=== PATIENT | female | born 1965 | race Caucasian/White ===

== ENCOUNTER 2017-02-14 14:30 | Inpatient (IN) ==
[2017-02-14 17:21] LABS: Appearance,Urine HAZY; Bacteria,Urine MOD /hpf (0); Bilirubin,Urine NEG (NEG); Color,Urine YELLOW; Glucose,Urine (UA) NEGATIVE (NEG); Leukocyte Esterase,Urine 25 /uL (NEG); Mucus,Urine MOD /hpf (0); Nitrate,Urine POS (NEG); Protein,Urine NEG (NEG); Specific Gravity,Urine 1.018 (1.000-1.035); Urine Blood 0.2 mg/dL (<0.03); Urine RBC 16 /hpf (0-1); Urine Squamous Epithelial Cell 1 /hpf (0-4); Urine WBC 14 /hpf (0-4); Urobilinogen,Urine NEG (NEG)
[2017-02-14 17:34] LABS: Basophils # (Auto) 0.1 K/mcL (0.0-0.3); Basophils % (Auto) 0.4 % (0.0-2.0); Eosinophils # (Auto) 0.1 K/mcL (0.0-0.7); Eosinophils % (Auto) 0.8 % (0.0-7.0); Granulocytes % (Auto) 83.7 % (38.0-78.0); Lymphocytes # (Auto) 2.1 K/mcL (1.5-4.8); Lymphocytes % (Auto) 12.4 % (15.5-49.0); Mean Cell Volume 91.2 fL (80.0-100.0); Mean Corpuscular HGB Conc 33.5 g/dL (31.0-36.0); Mean Corpuscular Hemoglobin 30.6 pg (26.0-34.0); Monocytes # (Auto) 0.5 K/mcL (0.1-0.9); Monocytes % (Auto) 2.7 % (1.0-12.0); Platelet Count 476 K/mcL (140-440); Red Cell Distribution Width 15.2 % (11.5-14.5)
[2017-02-14 17:43] LABS: Blood Urea Nitrogen 10 mg/dl (6-20)
[2017-02-20] MEDS ORDERED: oxyCODONE 10 MG TAB.ER.12H PO SCH ×2 (05:00→11:00)
[2017-02-20] MEDS ORDERED: ACETAMINOPHEN 500 MG TABLET PO SCH ×2 (05:00→11:00)
[2017-02-20] MEDS ORDERED: ceFAZolin 1 GM VIAL IV SCH ×2 (05:00→11:00)
[2017-02-20] MEDS ORDERED: PREGABALIN 150 MG CAPSULE PO SCH ×2 (05:00→11:00)
[2017-02-20] MEDS ORDERED: KETOROLAC 30 MG, ROPIVACAINE HCL/PF 49.5 ML, EPINEPHrine 0.5 MG, 0.9 % SODIUM CHLORIDE ... IJ SCH (06:30)
[2017-02-20 10:56] LABS: Basophils # (Auto) 0.3 K/mcL (0.0-0.3); Basophils % (Auto) 1.9 % (0.0-2.0); Eosinophils # (Auto) 0.3 K/mcL (0.0-0.7); Granulocytes % (Auto) 71.2 % (38.0-78.0); Lymphocytes # (Auto) 2.8 K/mcL (1.5-4.8); Lymphocytes % (Auto) 19.6 % (15.5-49.0); Mean Cell Volume 90.3 fL (80.0-100.0); Mean Corpuscular HGB Conc 33.6 g/dL (31.0-36.0); Mean Corpuscular Hemoglobin 30.4 pg (26.0-34.0); Monocytes # (Auto) 0.8 K/mcL (0.1-0.9); Monocytes % (Auto) 5.3 % (1.0-12.0); Platelet Count 434 K/mcL (140-440); RBC 4.67 M/mcL (4.00-5.20); Red Cell Distribution Width 15.1 % (11.5-14.5)
[2017-02-20 11:13] LABS: Appearance,Urine CLEAR; Bilirubin,Urine NEG (NEG); Color,Urine P.YELL; Glucose,Urine (UA) NORM (NEG); Leukocyte Esterase,Urine NEG /uL (NEG); Nitrate,Urine NEG (NEG); Protein,Urine NEG (NEG); Specific Gravity,Urine 1.013 (1.000-1.035); Urine Blood 50 ery/mcL (<5); Urobilinogen,Urine NORM (NEG)
[2017-02-20 11:26] LABS: Bacteria,Urine 0 /hpf (0); Urine RBC < 1 /hpf (0-1); Urine Squamous Epithelial Cell 0 /hpf (0-4); Urine WBC 0 /hpf (0-4)
[2017-02-20] MEDS ORDERED: IPRATROPIUM/ALBUTEROL 3 ML AMPUL.NEB NEB ONE (12:32)
[2017-02-20] MEDS ORDERED: ONDANSETRON 4 MG/2 ML VIAL IV ONE (13:00)
[2017-02-20] MEDS ORDERED: KETAMINE 100 MG/ML ML IV ONE (13:00)
[2017-02-20] MEDS ORDERED: LIDOCAINE HCL/PF 100 MG/5 ML SYRINGE IV ONE (13:00)
[2017-02-20] MEDS ORDERED: ROPIVACAINE HCL/PF 20 ML VIAL IJ ONE (13:00)
[2017-02-20] MEDS ORDERED: PROPOFOL 200 MG/20 ML VIAL IV ONE (13:00)
[2017-02-20] MEDS ORDERED: MIDAZOLAM 5 MG/5 ML VIAL IV ONE (13:00)
[2017-02-20] MEDS ORDERED: fentaNYL 250 MCG/5 ML VIAL IV ONE (13:00)
[2017-02-20] MEDS ORDERED: DEXAMETHASONE 10 MG/ML VIAL IV ONE (13:00)
[2017-02-20] MEDS ORDERED: TRANEXAMIC ACID 1,000 MG/10 ML VIAL IV ONE ×2 (13:00→14:23)
[2017-02-20] MEDS ORDERED: METOPROLOL TARTRATE 5 MG/5 ML VIAL IV PRN (13:48)
[2017-02-20] MEDS ORDERED: BENZOCAINE/MENTHOL 1 LOZENGE PO PRN ×2 (13:48→14:23)
[2017-02-20] MEDS ORDERED: ACETAMINOPHEN 1,000 MG/100 ML BOTTLE IV ONE (13:48)
[2017-02-20] MEDS ORDERED: NALOXONE HCL 0.4 MG/ML VIAL IV PRN (13:48)
[2017-02-20] MEDS ORDERED: diphenhydrAMINE 50 MG/ML VIAL IV PRN (13:48)
[2017-02-20] MEDS ORDERED: ePHEDrine 50 MG/ML AMPUL IV PRN (13:48)
[2017-02-20] MEDS ORDERED: ONDANSETRON 4 MG/2 ML VIAL IV PRN ×2 (13:48→14:23)
[2017-02-20] MEDS ORDERED: FLUMAZENIL 0.1 MG/ML ML IV PRN (13:48)
[2017-02-20] MEDS ORDERED: METHOCARBAMOL 1,000 MG/10 ML VIAL IV PRN (13:48)
[2017-02-20] MEDS ORDERED: ATROPINE SULFATE 0.4 MG/ML VIAL IV PRN (13:48)
[2017-02-20] MEDS ORDERED: PROMETHAZINE 25 MG/ML VIAL IV PRN (13:48)
[2017-02-20] MEDS ORDERED: IPRATROPIUM/ALBUTEROL 3 ML AMPUL.NEB NEB PRN (13:48)
[2017-02-20] MEDS ORDERED: LACTATED RINGERS 1,000 ML IV SCH (14:00)
[2017-02-20] MEDS ORDERED: GENTAMICIN SULFATE 800 MG/20 ML VIAL IR ONE (14:03)
[2017-02-20] MEDS ORDERED: HYDROmorphone 2 MG/ML SYRINGE IV PRN (14:23)
[2017-02-20] MEDS ORDERED: ACETAMINOPHEN 325 MG TABLET PO PRN (14:23)
[2017-02-20] MEDS ORDERED: POLYETHYLENE GLYCOL 3350 17 GM PACKET PO PRN (14:23)
[2017-02-20] MEDS ORDERED: BISACODYL 10 MG SUPP.RECT PR PRN (14:23)
[2017-02-20] MEDS ORDERED: FLEETS ADULT ENEMA PR PRN (14:23)
[2017-02-20] MEDS ORDERED: TEMAZEPAM 15 MG CAPSULE PO PRN (14:23)
[2017-02-20] MEDS ORDERED: MAGNESIUM HYDROXIDE 30 ML ORAL.SUSP PO PRN (14:23)
--- NOTE | 2017-02-20 14:23 | Brief Operative Note ---
Date of procedure: 02/20/17 Pre-op diagnosis: Right knee djd severe Post-op diagnosis: same Procedure: right tka with robot Grafts/Implants: Yes Anesthesia: GETA Complications: none Complications Description: 02/20/17 14:22 none Surgeon: Reynold Boateng Tile Conduit Layer: Noah Mcallister Estimated blood loss (cc): 20 Tourniquet Time (Minutes): 43 Specimens Removed/Pathology: none sent Condition: stable Disposition: PACU
[2017-02-20] MEDS: KETOROLAC 15 MG/ML VIAL IV SCH (14:56)
[2017-02-20] MEDS: fentaNYL 100 MCG/2 ML VIAL IV PRN ×4 (15:04→15:19)
--- NOTE | 2017-02-20 15:16 | Operative Note ---
DATE OF OPERATION: 02/20/2017 PREOPERATIVE DIAGNOSIS: Right knee degenerative arthritis. POSTOPERATIVE DIAGNOSIS: Right knee degenerative arthritis. PROCEDURE: Right total knee arthroplasty using the [employer] robot. SURGEON: Reynold Boateng M.D. HEARING INSTRUMENT SPECIALIST: Noah Mcallister PA-C. ANESTHESIA: General LMA anesthesia. COMPLICATIONS: None. TOURNIQUET TIME: 43 minutes. IMPLANTS: Size 1 femur, size 1 tibial baseplate with an 11 mm poly with a 29 mm patellar button. ESTIMATED BLOOD LOSS: About 20 mL. SPECIMENS: No specimens were sent. DESCRIPTION OF PROCEDURE: The patient was brought to the operating room and put to sleep with general LMA anesthesia. Once asleep, the patient had the right leg confirmed as the operative site. Preop antibiotics and tranexamic acid had been given. Once done, we then made a midline incision through the [place] and inspected the knee. This showed severe arthritis throughout the knee. We then proceeded with a total knee arthroplasty. Two pins above and below the knee were made and registered the center of hip rotation and medial and lateral malleolus. Intraarticular pins were registered, and thirty points on the femur and tibia were registered. Once this was done, we then brought in the robot after balancing the knee and adjusting the implants for tension of ligaments. We then used the robot to help make the bony cuts distally, posterior chamfer, anterior cut and anterior chamfer cut. I then made the tibial cut after registering the tibia and the robot once more. Once done, we then removed the bony fragments and then set the rotation of the tibial baseplate which was a size 1. We preserved the posterior cruciate ligament, and the femoral component was then positioned as far lateral as possible. This covered very nicely. Once done, we then trialed the 9 and 11 poly. The 11 poly was the most appropriate for tension throughout which was the robotic templated component. We then irrigated thoroughly and prepared the patella. It measured 20 mm in total thickness. This was cut to 13 mm and a 29 mm patellar button was then inserted. A small chamfer cut made laterally so no impingement could occur. I then cemented into place the above-mentioned sizes of components. Excess cement was removed. We kept the knee at 40 degrees of inclination until all cement was dry. Irrigated once more and closed the capsule with #1 Stratafix. Two of these stitches were used to close the medial capsule. The skin was closed with 2-0 Vicryl and adhesive closure. The patient tolerated this well without complication. Once done, the patient had a sterile bandage applied. Tourniquet time was 43 minutes. There was no complication. RONA:dm Job ID: [id number] Doc ID: [id number] Reynold Boateng MD
[2017-02-20] MEDS: oxyCODONE/APAP 5/325MG TABLET PO PRN ×3 (15:56→23:58)
--- NOTE | 2017-02-20 16:15 | XRay Report ---
CLINICAL INFORMATION: Post-Op Total Knee COMPARISON: None. FINDINGS: Total knee prostheses is anatomically aligned. No osseous abnormality. Soft tissue swelling seen as expected. IMPRESSION: Negative Interpreted and Authenticated by: Torres Villanueva 02/20/17
[2017-02-20] MEDS: 0.45 % SODIUM CHLORIDE 1,000 ML IV SCH (17:47)
[2017-02-20] MEDS: METHIMAZOLE 5 MG TABLET PO SCH ×2 (17:47→21:00)
[2017-02-20] MEDS: metFORMIN 500 MG TABLET PO SCH (17:53)
[2017-02-20] MEDS: oxyCODONE 10 MG TAB.ER.12H PO SCH (20:49)
[2017-02-20] MEDS: ASPIRIN 325 MG ENTERIC COATED TABLET PO SCH (20:51)
[2017-02-20] MEDS: DOCUSATE SODIUM 100 MG CAPSULE PO SCH (20:51)
[2017-02-20] MEDS: PREGABALIN 150 MG CAPSULE PO SCH (20:51)
[2017-02-20] MEDS: FAMOTIDINE 20 MG TABLET PO SCH (20:51)
[2017-02-20] MEDS: LORATADINE 10 MG TABLET PO SCH (20:53)
[2017-02-20] MEDS: ceFAZolin 1 GM VIAL IV SCH (20:53)
[2017-02-20] MEDS: PROPRANOLOL 40 MG TABLET PO SCH (21:00)
[2017-02-20] MEDS ORDERED: SENNOSIDES 1 TABLET PO SCH (21:00)
[2017-02-20] MEDS ORDERED: ATORVASTATIN 20 MG TABLET PO SCH (21:00)
[2017-02-20] MEDS: 0.9 % SODIUM CHLORIDE 10 ML SYRINGE IV SCH (21:11)
[2017-02-21] MEDS: 0.45 % SODIUM CHLORIDE 1,000 ML IV SCH (00:42)
[2017-02-21] MEDS: oxyCODONE/APAP 5/325MG TABLET PO PRN ×3 (03:43→11:59)
[2017-02-21] MEDS: ceFAZolin 1 GM VIAL IV SCH (05:37)
[2017-02-21] MEDS: KETOROLAC 15 MG/ML VIAL IV SCH ×3 (05:46→11:02)
[2017-02-21] MEDS: 0.9 % SODIUM CHLORIDE 10 ML SYRINGE IV SCH (05:53)
[2017-02-21] MEDS: metFORMIN 500 MG TABLET PO SCH (07:47)
--- NOTE | 2017-02-21 07:47 | Orthopedic Progress Note ---
Subjective Patient information: Note initiated : 02/21/17 at 7:46 am Service Date, if different from initiated Date: [] Patient: [place] Lazaro 52 y/o F admitted on 02/20/17 for Right Total Knee Arthroplasty-[place] . Chief Complaint: [Pt is stable this morning on post operative day 1 without any significant concerns or complaints. Patients vital signs have remained stable. Patients dressing is dry and exhibits a grossly intact neurovascular and neuromotor exam. Patients 10 point ROS is otherwise negative. ] Objective Vital signs: Vital Signs Temp Pulse Resp BP BP Pulse Ox 02/21/17 07:41 97.7 F 16 92/58 96 02/21/17 03:47 98.1 F 82 16 99/63 94 02/21/17 03:45 94 02/21/17 00:01 98/50 02/21/17 00:00 98.8 F 87 16 86/52 96 02/20/17 22:00 96 02/20/17 20:00 98.5 F 91 H 16 98/60 94 02/20/17 18:23 94 02/20/17 17:40 102/60 93 02/20/17 17:25 118/79 95 02/20/17 16:40 119/83 98 02/20/17 16:25 115/71 98 02/20/17 16:10 126/84 100 02/20/17 15:40 147/129 99 02/20/17 15:15 97.7 F 16 134/66 97 02/20/17 15:00 97.7 F 16 134/66 97 02/20/17 14:50 97.7 F 16 124/87 97 02/20/17 14:45 97.7 F 16 118/67 100 02/20/17 11:21 98 F 18 109/83 96 02/20/17 10:09 97.7 F 20 89/61 96 Intake and Output 02/20/17 02/21/17 02/21/17 21:59 05:59 13:59 Intake Total 1999 1550 / 1550 Output Total 425 / 425 1050 / 1050 600 / 600 Balance 1575 / 1575 500 / 500 -600 / -600 Intake: Oral 1550 / 1550 IV - Manual Only 1999 Output: Void Amount 425 / 425 1050 / 1050 600 / 600 Other: # Voids 2 Weight 180 lb 8 oz Intake & Output: Intake & Output 02/20/17 02/21/17 02/21/17 21:59 05:59 13:59 Intake Total 1999 1550 / 1550 Output Total 425 / 425 1050 / 1050 600 / 600 Balance 1575 / 1575 500 / 500 -600 / -600 Weight 180 lb 8 oz Intake: Oral 1550 / 1550 IV - Manual Only 1999 Output: Void Amount 425 / 425 1050 / 1050 600 / 600 Other: # Voids 2 Incision: Yes healing Incision clean and dry: Yes Dressing: Yes clean, Yes dry Weight bearing status: full Neurological exam IM: Yes oriented X3, Yes motor sensory intact, Yes neurovascular intact Extremities exam IM: Yes Foot pink and warm, Yes neurovascular intact - Labs CBC & BMP: 02/21/17 05:41 02/14/17 15:33 Labs: Orthopedic Labs 02/14/17 15:33 PT 14.4 INR 1.1 APTT 36 02/21/17 02/20/17 02/14/17 05:41 10:07 15:33 Hgb 14.2 14.6 Hct 34.9 L 42.2 43.8 Assessment and Plan (1) Hx of total knee arthroplasty The patient has been educated regarding dressing care, Physical Therapy recommendations, home exercises, restrictions, and follow up appointments. The patient has had all necessary DME prescribed. The patient has remained stable during their hospital course. The patient was discharge with a stable exam. Status: Acute
[2017-02-21] MEDS: PROPRANOLOL 40 MG TABLET PO SCH (07:50)
--- NOTE | 2017-02-21 07:50 | Discharge Summary ---
Ortho Discharge - TKA - Patient Instructions Diet: Regular Diet Activity: activity as tolerated, weight bearing as tolerated Total Knee Protocol: For Total Knee: Start ROM YEIMY with stationary bike or rocking chair. Work on gaining full extension of knee. Posterior dislocation precautions provided. Hip abductor strengthening and gait training instructions provided. Apply Cryocuff as instructed. Patient Education: Total Knee Replacement (DC) Additional Instructions: CPM for home use - Problem Maintenance (1) Hx of total knee arthroplasty Status: Acute - Follow Up Plan Follow Up Appointments: Reynold Boateng MD [Physician] - 03/07/17 3:50 pm Disposition: Home, Self-Care Prognosis: Good Rehab Potential: Good I certify that the patient requires SNF services: No Overall status at discharge: patient is progressing back to baseline - Orders For Discharge Prescriptions: Aspirin [Ecotrin] 325 mg PO BID #60 tab.ec Docusate Sodium [Colace] 100 mg PO BID #60 cap oxyCODONE/APAP [Percocet 5-325 mg] 1 - 2 tab PO Q4HP PRN #75 tab PRN Reason: Pain Level 3-6
[2017-02-21] MEDS: PREGABALIN 150 MG CAPSULE PO SCH (08:39)
[2017-02-21] MEDS: oxyCODONE 10 MG TAB.ER.12H PO SCH (08:40)
[2017-02-21] MEDS: FAMOTIDINE 20 MG TABLET PO SCH (08:40)
[2017-02-21] MEDS: LORATADINE 10 MG TABLET PO SCH (08:40)
[2017-02-21] MEDS: DOCUSATE SODIUM 100 MG CAPSULE PO SCH (08:40)
[2017-02-21] MEDS: ASPIRIN 325 MG ENTERIC COATED TABLET PO SCH (08:40)
[2017-02-21] MEDS ORDERED: DULoxetine 30 MG CAPSULE PO SCH (09:00)
[2017-02-21] MEDS ORDERED: HYDROCHLOROTHIAZIDE 25 MG TABLET PO SCH (09:00)
[2017-02-21] MEDS ORDERED: LISINOPRIL 20 MG TABLET PO SCH (09:00)
[2017-02-21] MEDS ORDERED: MULTIVIT,THER IRON,CA,FA & MIN 1 TABLET PO SCH (09:00)
[2017-02-21] MEDS ORDERED: FLU VACC QS2017-18 36MOS UP/PF 60 MCG/0.5 ML SYRINGE IM ONE (10:00)
[2017-02-21] MEDS: METHIMAZOLE 5 MG TABLET PO SCH (10:01)
== END 2017-02-21 12:07 | disposition home or self-care (01) | DRG 470 ==
LOC: MEDSUR 02-20 09:47
PROVIDERS: ADMIT Orthopaedic Surgery; ATTEND Orthopaedic Surgery